=== PATIENT | female | born 1985 | race Caucasian/White ===

== ENCOUNTER 2018-12-30 14:01 | Emergency (ER) | payer OTHER ==
[~2018-12-30] VITALS: Ht 170.2 cm; Wt 85.3 kg
== END 2018-12-30 16:39 | disposition home or self-care (01) ==
LOC: ER 14:01
DX: H66.93 Otitis media, unspecified, bilateral (principal)

== ENCOUNTER 2022-09-04 14:15 | Emergency (ER) | payer OTHER ==
[~2022-09-04] VITALS: Ht 167.6 cm; Wt 81.6 kg
== END 2022-09-04 16:46 | disposition home or self-care (01) ==
LOC: ER 14:15
DX: M94.0 Chondrocostal junction syndrome [Tietze] (principal)